=== PATIENT | male | born 1990 | race Caucasian/White ===

== ENCOUNTER 2016-08-10 18:42 | Emergency (ER) | payer OTHER ==
--- NOTE | 2016-08-10 18:56 | Emergency Department Record ---
History of Present Illness - General Chief Complaint: Chest Pain Stated Complaint: CHEST PAIN Time Seen by Provider: 08/10/16 18:54 Source: Patient Mode of Arrival: Ambulatory Limitations: No limitations - History of Present Illness Initial Comments: The patient is here due to waking up just over an hour ago and having Left upper chest pain. The pain is a mild aching pain that is better with lying down and worse with sitting up. He denies any SOB, MORA, sweating, or nausea with the pain. He also denies any recent illnesses, fever, chills, cough or congestion. The patient has no medical hx and no hx of any CP with exertion. MD Complaint: Chest pain Onset/Timin -: Hour(s) Onset: Awoke with symptoms Pain Location: Left chest Pain Radiation: LUE Severity: Mild Severity scale (1-10): 6 Quality: Aching Improves With: Nothing Worsens With: Nothing Treatments Prior to Arrival: None - Related Data Allergies Allergy/AdvReac Type Severity Reaction Status Date / Time No Known Drug Allergies Allergy Verified 08/10/16 18:54 Travel Screening - Travel/Exposure Within Last 30 Days Have you traveled within the last 30 days?: No - Travel/Exposure Within Last Year Have you traveled outside the [place] in the last year?: No - Additonal Travel Details Have you been exposed to anyone with a communicable illness?: No - Travel Symptoms Symptom Screening: None Review of Systems Constitutional: Denies: Chills, Fever Eyes: Denies: Eye discharge ENT: Denies: Congestion Respiratory: Denies: Cough, Dyspnea Past Medical History - SOCIAL HISTORY Smoking Status: Former smoker Alcohol Use: None Drug Use: None - RESPIRATORY Hx Respiratory Disorders: No - CARDIOVASCULAR Hx Cardio Disorders: No - NEURO Hx Neuro Disorders: No - GI Hx GI Disorders: No - Hx Genitourinary Disorders: No - ENDOCRINE Hx Endocrine Disorders: No - MUSCULOSKELETAL Hx Musculoskeletal Disorders: No - PSYCH Hx Psych Problems: No - HEMATOLOGY/ONCOLOGY Hx Hematology/Oncology Disorders: No Family Medical History Any Significant Family History?: No Physical Exam - General General Appearance: Alert, Oriented x3, Cooperative, No acute distress - Head Head exam: Atraumatic, Normocephalic, Normal inspection - Eye Eye exam: Normal appearance, PERRL - ENT Throat exam: Normal inspection. negative: Tonsillar erythema, Tonsillar exudate - Neck Neck exam: Normal inspection, Full ROM. negative: Tenderness - Respiratory Respiratory exam: Normal lung sounds bilaterally, Chest wall tenderness (To palpation over the L upper chest.). negative: Respiratory distress - Cardiovascular Cardiovascular Exam: Regular rate, Normal rhythm, Normal heart sounds - GI/Abdominal GI/Abdominal exam: Soft, Normal bowel sounds. negative: Tenderness - Extremities Extremities exam: Normal inspection, Full ROM, Normal capillary refill. negative: Tenderness Course Vital Signs 08/10/16 18:46 Temperature 97.6 F Pulse Rate 109 H Respiratory 16 Rate Blood Pressure 134/99 Pulse Ox 97 - Reevaluation(s) Reevaluation #1: The patient is doing well at this time. He denies any pain or MORA. I did discuss the xray results with him and the need for hospital admission at a larger hospital. Due to the fact he used to live in [place] he did pick [facility]. I then did discuss the patient with Dr. Christensen at the [facility] ER and she does accept the patient in an ER to ER transfer. 08/10/16 19:33 Reevaluation #2: The patient is doing well at this time. I did discuss the need for a small chest tube in the L side but the patient wants to wait until he gets to [facility]. Presently his vitals are WNL with no tachycardia or MORA. His RA biox is 98%. Because of the patient being so stable I do not see the need for the tube at this time and believe it will be safe for transfer to [facility]. The patient has been with the pain for about 2 hours now and is very stable. 08/10/16 19:45 Medical Decision Making - Data Complexity MDM Data: X-Ray Ordered and/or Reviewed - Lab Data Result diagrams: 08/10/16 19:25 08/10/16 19:25 - EKG Data -: EKG Interpreted by Me EKG: No Acute Changes, Normal EKG - Radiology Data Radiology results: Report reviewed (CXR: L sided PTX mild to mod.) Disposition Disposition: Transfer Clinical Impression: Pneumothorax on left Transfer To: [facility] Reason For Transfer: L sided PTX. Accepting Physician: Dr. Christensen Time Discussed w/Accepting Physician: 19:35 Forms: Patient Portal Access Time of Disposition: 19:35
[2016-08-10] MEDS: IBUPROFEN 600 MG TABLET PO ONE ×2 (19:15→19:17)
[2016-08-10] MEDS ORDERED: ONDANSETRON HCL IV 4 MG/2 ML VIAL IVP ONE (19:17)
[2016-08-10] MEDS ORDERED: HYDROMORPHONE HCL 1 MG/ML CPJ IVP ONE (19:17)
[2016-08-10 19:33] LABS: BASO % 0.9 % (0-6); EOS % 3.2 % (0-6); GRAN % 54.9 % (47-80); HEMATOCRIT 47.5 % (42.0-52.0); HEMOGLOBIN 16.5 gm/dl (14.0-18.0); LYMPH % 30.7 % (16-45); MEAN CELL VOLUME 83.8 fl (81-97); MEAN CORPUSCULAR HEMOGLOBIN 29.1 pg (27-33); MEAN CORPUSCULAR HGB CONC 34.7 g/dl (32-36); MEAN PLATELET VOLUME 10.3 fl (7.4-10.4); MONO % 10.3 % (0-9); PLATELET COUNT 176 K/uL (130-400); RED BLOOD COUNT 5.67 M/uL (4.40-5.70); RED CELL DISTRIBUTION WIDTH 13.6 % (11.5-14.5); WHITE BLOOD COUNT W/O DIFF 4.4 K/uL (4.2-12.2)
[2016-08-10 19:43] LABS: ANION GAP 7.7 (7-16); BLOOD UREA NITROGEN 16 mg/dL (9-20); CARBON DIOXIDE 29.3 mmol/L (22-30); CREATININE 0.9 mg/dL (0.66-1.25); EST GLOMERULAR FILTRATION RATE > 60 ml/min; GLUCOSE,RANDOM 93 mg/dL (70-110)
--- NOTE | 2016-08-13 15:15 | RADIOLOGY REPORT ---
EXAM: CHEST 2 VIEWS HISTORY: DIFFICULTY IN BREATHING. TECHNIQUE: Frontal and lateral views of the chest were performed. FINDINGS: Heart size normal. There is a left pneumothorax. There is pleural separation of 4.5 cm in the left lung apex. There is 1.6 cm laterally. The osseous structures are normal. JOB NUMBER: [id number] MTDD
== END 2016-08-10 19:52 | disposition short-term general hospital (02) ==
LOC: ER 18:42
DX: J93.9 Pneumothorax, unspecified (principal); Z87.891 Personal history of nicotine dependence
CPT/HCPCS: 99285 ×2; 96374; 96375; 85025; 80048; 71020; 93005; 93010; J2405; J1170

== ENCOUNTER 2016-08-17 11:38 | Emergency (ER) | payer OTHER ==
--- NOTE | 2016-08-17 12:10 | Emergency Department Record ---
History of Present Illness - General Chief Complaint: Shortness of breath Stated Complaint: MORA Time Seen by Provider: 08/17/16 12:01 Source: Patient Mode of Arrival: Wheelchair Limitations: No limitations - History of Present Illness Initial Comments: 26 yo male presents with initially a concern about the left sided chest dressing. He was concerns about bathing. Last week he had a pneumothorax. He was transferred to [facility]. He had a chest tube placed. He was discharged on Thursday. Today he was not sure if he could shower. He called [facility] and mentioned in the last one hour he felt anxious and short of breath. No fever or cough. MD Complaint: Shortness of breath Onset/Timin -: Hour(s) Severity: Mild Severity scale (1-10): 4 Quality: Aching Consistency: Constant Improves With: Nothing Worsens With: Movement Known History Of: Other Context: Trauma/injury Associated Symptoms: Other Treatments Prior to Arrival: Other (Left sided chest tube) - Related Data Home Medications Medication Instructions Recorded Confirmed Last Taken No Home Med [NO HOME MEDS] 08/17/16 08/17/16 Unknown Allergies Allergy/AdvReac Type Severity Reaction Status Date / Time No Known Drug Allergies Allergy Verified 08/10/16 18:54 Travel Screening - Travel/Exposure Within Last 30 Days Have you traveled within the last 30 days?: No Review of Systems Constitutional: Denies: Chills, Fever, Malaise Eyes: Denies: Eye discharge, Eye pain, Vision change ENT: Denies: Congestion, Throat pain Respiratory: Reports: Dyspnea. Denies: Cough, Hemoptysis, Stridor, Wheezes Cardiovascular: Denies: Chest pain, Palpitations, Syncope Endocrine: Denies: Fatigue Gastrointestinal: Denies: Diarrhea, Vomiting Genitourinary: Denies: Dysuria, Frequency Musculoskeletal: Denies: Arthralgia, Back pain, Myalgia Skin: Denies: Bruising, Change in color, Rash Neurological: Denies: Confusion, Headache Psychiatric: Denies: Anxiety Hematological/Lymphatic: Denies: Blood Clots, Easy bleeding, Easy bruising, Swollen glands Past Medical History - SOCIAL HISTORY Smoking Status: Former smoker - RESPIRATORY Hx Respiratory Disorders: Yes Comment:: spontaneous pneumo - CARDIOVASCULAR Hx Cardio Disorders: No - NEURO Hx Neuro Disorders: No - GI Hx GI Disorders: No - Hx Genitourinary Disorders: No - ENDOCRINE Hx Endocrine Disorders: No - MUSCULOSKELETAL Hx Musculoskeletal Disorders: No - PSYCH Hx Psych Problems: No - HEMATOLOGY/ONCOLOGY Hx Hematology/Oncology Disorders: No Family Medical History Any Significant Family History?: No Physical Exam - General General Appearance: Alert, Oriented x3, Cooperative, No acute distress Limitations: No limitations - Head Head exam: Normal inspection - Eye Eye exam: Normal appearance. negative: Conjunctival injection - ENT ENT exam: Normal exam Ear exam: Normal external inspection Nasal Exam: Normal inspection Mouth exam: Normal external inspection Teeth exam: Normal inspection Throat exam: Normal inspection - Neck Neck exam: Normal inspection, Full ROM. negative: Tenderness - Respiratory Respiratory exam: Normal lung sounds bilaterally. negative: Decreased breath sounds, Prolonged expiratory, Respiratory distress, Rhonchi, Stridor, Wheezes - Cardiovascular Cardiovascular Exam: Regular rate, Normal rhythm, Normal heart sounds - GI/Abdominal GI/Abdominal exam: Soft - Rectal Rectal exam: Deferred - exam: Deferred - Extremities Extremities exam: Normal inspection, Full ROM, Normal capillary refill. negative: Pedal edema, Tenderness - Back Back exam: Reports: Normal inspection. Denies: CVA tenderness (R), CVA tenderness (L) - Neurological Neurological exam: Alert, Oriented X3 - Psychiatric Psychiatric exam: Normal affect, Normal mood. negative: Agitated, Anxious - Skin Skin exam: Dry, Intact, Normal color, Warm Course Vital Signs 08/17/16 11:54 Temperature 98.7 F Pulse Rate 80 Respiratory 20 Rate Blood Pressure 151/87 Pulse Ox 98 - Reevaluation(s) Reevaluation #1: The patient was seen and examined He is calm an in no distress, he is non labored No hypoxia or tachycardia The dressing is intact, no redness or drainage near the chest tube insertion site. 08/17/16 12:09 Reevaluation #2: The CXR is negative. The prior PTX is resolved His vitals are unremarkable. No fever, tachycardia or hypoxia He is to call for follow up tomorrow as scheduled with his surgeon. 08/17/16 12:49 Disposition Disposition: Discharge Clinical Impression: Dyspnea Qualifiers: Dyspnea type: unspecified Qualified Code(s): R06.00 - Dyspnea, unspecified Disposition: Home, Self-Care Condition: (1) Good Instructions: Dyspnea (ED) Additional Instructions: Return or go to [facility] if you have pain, fever or shortness of breath Call for your appointment time for follow up in the morning Forms: Patient Portal Access Time of Disposition: 12:51
--- NOTE | 2016-08-21 07:24 | RADIOLOGY REPORT ---
EXAM: CHEST, TWO VIEWS HISTORY: DIFFICULTY IN BREATHING FOR ONE HOUR. SMOKE EXPOSURE. HISTORY OF PNEUMOTHORAX WITH CHEST TUBE PLACEMENT ONE WEEK AGO. TECHNIQUE: Upright PA and lateral views of the chest were obtained. Comparison: Two view chest radiographic examination dated 08/10/16. FINDINGS: There has been interval clearing of the left pneumothorax. The lungs and pleural spaces are clear. The cardiomediastinal silhouette is normal in size and configuration. The pulmonary vasculature is nondilated. No acute osseous abnormality noted. IMPRESSION: THE PREVIOUSLY DEMONSTRATED LEFT PNEUMOTHORAX IS NO LONGER VISUALIZED. NO EVIDENCE OF ACUTE CARDIOPULMONARY DISEASE. JOB NUMBER: [id number] [facility]
== END 2016-08-17 13:05 | disposition home or self-care (01) ==
LOC: ER 11:38
DX: R06.00 Dyspnea, unspecified (principal)
CPT/HCPCS: 71020; 99283

== ENCOUNTER 2017-02-04 07:56 | Emergency (ER) | payer OTHER ==
--- NOTE | 2017-02-04 08:22 | Emergency Department Record ---
History of Present Illness - General Chief complaint: Abscess Stated complaint: PRIVATE REASON Time Seen by Provider: 02/04/17 08:13 Mode of Arrival: Ambulatory - History of Present Illness Initial comments: lump on the right side of scrotum about one year and he said he had them as a kid and would pick at them and they would drainage. No pain today and no trauma. -: Year(s) Hx Tetanus Toxoid Vaccination: No Location: Genitals Consistency: Constant Improves with: None Worsens with: None Context: None Associated symptoms: Denies other symptoms Treatments Prior to Arrival: None - Related Data Allergies Allergy/AdvReac Type Severity Reaction Status Date / Time No Known Drug Allergies Allergy Verified 08/10/16 18:54 Travel Screening - Travel/Exposure Within Last 30 Days Have you traveled within the last 30 days?: No Review of Systems Reviewed: No additional complaints except as noted below Constitutional: Reports: As per HPI. Denies: Chills, Fever, Malaise, Night sweats, Weakness, Weight change Eyes: Reports: As per HPI. Denies: Eye discharge, Eye pain, Photophobia, Vision change ENT: Reports: As per HPI. Denies: Congestion, Dental pain, Ear pain, Epistaxis , Hearing loss, Throat pain Respiratory: Reports: As per HPI. Denies: Cough, Dyspnea, Hemoptysis, Stridor, Wheezes Cardiovascular: Reports: As per HPI. Denies: Arrhythmia, Chest pain, Dyspnea on exertion, Edema, Murmurs, Orthopnea, Palpitations, Paroxysmal nocturnal dyspnea, Rheumatic Fever, Syncope Endocrine: Reports: As per HPI. Denies: Fatigue, Heat or cold intolerance, Polydipsia, Polyuria Gastrointestinal: Reports: As per HPI. Denies: Abdominal pain, Constipation, Diarrhea, Hematemesis, Hematochezia, Melena, Nausea, Vomiting Genitourinary: Reports: As per HPI. Denies: Dysuria, Frequency, Hematuria, Incontinence, Retention, Testicular pain, Testicular mass, Urgency Musculoskeletal: Reports: As per HPI. Denies: Arthralgia, Back pain, Gout, Joint swelling, Myalgia, Neck pain Skin: Reports: As per HPI, Other (non painful cyst on the right side of the scrotum.). Denies: Bruising, Change in color, Change in hair/nails, Lesions, Pruritus, Rash Neurological: Reports: As per HPI. Denies: Abnormal gait, Confusion, Headache, Numbness, Paresthesias, Seizure, Tingling, Tremors, Vertigo, Weakness Psychiatric: Reports: As per HPI. Denies: Anxiety, Auditory hallucinations, Depression, Homicidal thoughts, Suicidal thoughts, Visual hallucinations Hematological/Lymphatic: Reports: As per HPI. Denies: Anemia, Blood Clots, Easy bleeding, Easy bruising, Swollen glands Past Medical History - SOCIAL HISTORY Smoking Status: Former smoker Alcohol Use: None Drug Use: None - RESPIRATORY Hx Respiratory Disorders: Yes Comment:: spontaneous pneumo - CARDIOVASCULAR Hx Cardio Disorders: No - NEURO Hx Neuro Disorders: No - GI Hx GI Disorders: No - Hx Genitourinary Disorders: No - ENDOCRINE Hx Endocrine Disorders: No - MUSCULOSKELETAL Hx Musculoskeletal Disorders: No - PSYCH Hx Psych Problems: No - HEMATOLOGY/ONCOLOGY Hx Hematology/Oncology Disorders: No Family Medical History Any Significant Family History?: No Physical Exam - General General Appearance: Alert, Oriented x3, Cooperative, No acute distress - Head Head exam: Normal inspection - Eye Eye exam: Normal appearance, PERRL Pupils: Normal accommodation - ENT ENT exam: Normal exam, Mucous membranes moist, Normal external ear exam, Normal orophraynx, TM's normal bilaterally Ear exam: Normal external inspection. negative: External canal tenderness Nasal Exam: Normal inspection. negative: Discharge, Sinus tenderness Mouth exam: Normal external inspection, Tongue normal Teeth exam: Normal inspection. negative: Dental caries Throat exam: Normal inspection. negative: Tonsillar erythema, Tonsillar exudate - Neck Neck exam: Normal inspection, Full ROM. negative: Tenderness - Respiratory Respiratory exam: Normal lung sounds bilaterally. negative: Respiratory distress - Cardiovascular Cardiovascular Exam: Regular rate, Normal rhythm, Normal heart sounds - GI/Abdominal GI/Abdominal exam: Soft, Normal bowel sounds. negative: Tenderness - Rectal Rectal exam: Deferred - exam: Scrotal swelling (white cystic lump, not painful and not infected), Other (white cyst on the side of the right scrotum. Not painful size of a small dickens tomato.) - Extremities Extremities exam: Normal inspection, Full ROM, Normal capillary refill. negative: Tenderness - Back Back exam: Reports: Normal inspection, Full ROM. Denies: Muscle spasm, Rash noted, Tenderness - Neurological Neurological exam: Alert, Normal gait, Oriented X3, Reflexes normal - Psychiatric Psychiatric exam: Normal affect, Normal mood - Skin Skin exam: Dry, Intact, Normal color, Warm Course Vital Signs 02/04/17 07:58 Temperature 97.5 F L Pulse Rate 105 H Respiratory 18 Rate Blood Pressure 136/90 Pulse Ox 99 Disposition Clinical Impression: Cyst of scrotum Disposition: Home, Self-Care Instructions: Epidermal Inclusion Cysts (ED) Additional Instructions: follow up with family to evaluate it. He would like to have it removed Forms: Patient Portal Access Time of Disposition: 08:33 Quality - Quality Measures Quality Measures: N/A - Blood Pressure Screening Does Patient Have Any of the Following: No Blood Pressure Classification: Hypertensive Reading Systolic Measurement: 136 Diastolic Measurement: 90 Screening for High Blood Pressure: < Pre-Hypertensive BP, F/U Documented > [ G8950] Pre-Hypertensive Follow-up Interventions: Referral to alternative/primary care provider.
== END 2017-02-04 08:39 | disposition home or self-care (01) ==
LOC: ER 07:56
DX: L72.8 Other follicular cysts of the skin and subcutaneous tissue (principal)
CPT/HCPCS: 99282

== ENCOUNTER 2018-08-30 09:44 | Emergency (ER) | payer SELFPAY ==
[2018-08-30] MEDS ORDERED: KETOROLAC 30 MG/ML VIAL IVP ONE (10:00)
[2018-08-30] MEDS ORDERED: LORAZEPAM 2 MG/ML VIAL IV ONE (10:02)
[2018-08-30 10:07] LABS: BASO % 0.4 % (0-6); EOS % 0.6 % (0-6); GRAN % 68.5 % (47-80); HEMATOCRIT 48.6 % (42.0-52.0); LYMPH % 20.4 % (16-45); MEAN CELL VOLUME 83.1 fl (81-97); MEAN PLATELET VOLUME 10.3 fl (7.4-10.4); MONO % 10.1 % (0-9); PLATELET COUNT 241 K/uL (130-400); RED BLOOD COUNT 5.85 M/uL (4.40-5.70); RED CELL DISTRIBUTION WIDTH 14.5 % (11.5-14.5)
--- NOTE | 2018-08-30 10:12 | Emergency Department Record ---
History of Present Illness - General Chief Complaint: Chest Pain Stated Complaint: CHEST PAIN Time Seen by Provider: 08/30/18 09:55 Source: Patient Mode of Arrival: Ambulatory Limitations: No limitations - History of Present Illness Initial Comments: The patient is here due to L sided sharp CP since yesterday. He denies any SOB with the pain or any sweating or nausea. The patient has a hx of similar pain with a spontaneous Pneumothorax on the L side in the past. MD Complaint: Chest pain Onset/Timin -: Days(s) Onset: During rest Pain Location: Left chest Pain Radiation: Back Severity: Moderate Severity scale (1-10): 8 Quality: Sharp Consistency: Constant Improves With: Nothing Worsens With: Movement Treatments Prior to Arrival: None - Related Data Home Medications Medication Instructions Recorded Confirmed Last Taken Nicotine [Nicotine 21Mg] 1 patch TD DAILY 08/30/18 08/30/18 08/30/18 Allergies Allergy/AdvReac Type Severity Reaction Status Date / Time No Known Drug Allergies Allergy Verified 08/30/18 09:49 Travel Screening - Travel/Exposure Within Last 30 Days Have you traveled within the last 30 days?: No - Travel/Exposure Within Last Year Have you traveled outside the [place] in the last year?: No Review of Systems Constitutional: Denies: Chills, Fever Eyes: Denies: Eye discharge ENT: Denies: Congestion Respiratory: Denies: Cough, Dyspnea Cardiovascular: Reports: Chest pain. Denies: Arrhythmia Endocrine: Denies: Fatigue Gastrointestinal: Denies: Nausea Musculoskeletal: Denies: Arthralgia Skin: Denies: Bruising Neurological: Denies: Abnormal gait Past Medical History - SOCIAL HISTORY Smoking Status: Former smoker Alcohol Use: None Drug Use: None - RESPIRATORY Hx Respiratory Disorders: Yes Comment:: spontaneous pneumo - CARDIOVASCULAR Hx Cardio Disorders: No - NEURO Hx Neuro Disorders: No - GI Hx GI Disorders: No - Hx Genitourinary Disorders: No - ENDOCRINE Hx Endocrine Disorders: No - MUSCULOSKELETAL Hx Musculoskeletal Disorders: No - PSYCH Hx Psych Problems: No - HEMATOLOGY/ONCOLOGY Hx Hematology/Oncology Disorders: No Family Medical History Any Significant Family History?: No Physical Exam - General General Appearance: Alert, Oriented x3, Cooperative, No acute distress - Head Head exam: Atraumatic, Normocephalic, Normal inspection - Eye Eye exam: Normal appearance, PERRL, EOMI - ENT Throat exam: Normal inspection. negative: Tonsillar erythema, Tonsillar exudate - Neck Neck exam: Normal inspection, Full ROM. negative: Tenderness - Respiratory Respiratory exam: Decreased breath sounds (L side.). negative: Normal lung sounds bilaterally, Respiratory distress - Cardiovascular Cardiovascular Exam: Regular rate, Normal rhythm, Normal heart sounds - GI/Abdominal GI/Abdominal exam: Soft, Normal bowel sounds. negative: Tenderness - Extremities Extremities exam: Normal inspection, Full ROM, Normal capillary refill. negative: Tenderness - Back Back exam: Reports: Normal inspection - Neurological Neurological exam: Alert, Normal gait. negative: Abnormal gait, Motor sensory deficit - Skin Skin exam: negative: Rash Course Vital Signs 08/30/18 09:46 Temperature 98.9 F Pulse Rate 108 H Respiratory 18 Rate Blood Pressure 127/95 Pulse Ox 98 - Reevaluation(s) Reevaluation #1: I did inform the patient of the L sided PTX. He states he would like to go to [facility] for the treatment. I did offer to place a chest tube but the patient would like to wait until he gets to [facility]. He would like to be out for the procedure which we cannot perform here. 08/30/18 10:34 Reevaluation #2: The patient is very stable at this time. His BP is stable and his HR is 100-110 with normal O2 sats. The patient has no signs of a tension PTX at this time. The patient would like to wait and possible have the surgery instead of the chest tube and also be out for the tube if he needs it. Due to those issues I do feel it is stable waiting to place the tube for now. 08/30/18 10:38 08/30/18 10:40 Medical Decision Making - Data Complexity MDM Data: EKG Ordered and/or Reviewed - Lab Data Result diagrams: 08/30/18 09:50 08/30/18 09:50 Lab Results 08/30/18 Range/Units 09:50 WBC 8.0 (4.2-12.2) K/uL RBC 5.85 H (4.40-5.70) M/uL Hgb 17.0 (14.0-18.0) gm/dl Hct 48.6 (42.0-52.0) % MCV 83.1 (81-97) fl MCH 29.0 (27-33) pg MCHC 35.0 (32-36) g/dl RDW 14.5 (11.5-14.5) % Plt Count 241 (130-400) K/uL MPV 10.3 (7.4-10.4) fl Gran % 68.5 (47-80) % Lymphocytes % 20.4 (16-45) % Monocytes % 10.1 H (0-9) % Eosinophils % 0.6 (0-6) % Basophils % 0.4 (0-6) % - EKG Data -: EKG Interpreted by Me EKG: No Acute Changes, Normal EKG, Unchanged From Previous Disposition Disposition: Transfer Clinical Impression: Pneumothorax on left Disposition: Acute Care Hospital Transfer Transfer To: [facility] Reason For Transfer: L sided PTX Accepting Physician: Nany. Time Discussed w/Accepting Physician: 10:36 Condition: (2) Stable Forms: Patient Portal Access Time of Disposition: 10:36 Quality - Quality Measures Quality Measures: N/A - Blood Pressure Screening View Details: Yes Does Patient Have Any of the Following: No Blood Pressure Classification: Hypertensive Reading Systolic Measurement: 127 Diastolic Measurement: 95 Screening for High Blood Pressure: < First Hypertensive BP, F/U Documented > [ G8950] First Hypertensive Follow-up Interventions: Referral to alternative/primary care provider.
[2018-08-30 10:20] LABS: BLOOD UREA NITROGEN 20 mg/dL (6-20); CREATININE 0.9 mg/dL (0.7-1.2); EST GLOMERULAR FILTRATION RATE > 60 mL/min
[2018-08-30 10:23] LABS: GLUCOSE,RANDOM 114 mg/dL (74-109)
[2018-08-30] MEDS ORDERED: HYDROMORPHONE HCL 2 MG/ML VIAL IVP ONE (10:38)
--- NOTE | 2018-08-31 18:46 | RADIOLOGY REPORT ---
EXAM: CHEST 2 VIEWS HISTORY: CHEST PAIN AND DIFFICULTY BREATHING FOR ONE DAY. HISTORY OF SPONTANEOUS PNEUMOTHORAX. TECHNIQUE: Two views of the chest. COMPARISON: Chest radiograph with rib series, 08/03/2018. FINDINGS: Cardiac silhouette within normal size limits. Mediastinal structures appear midline. There is a large left pneumothorax, pleural separation measuring up to 7.2 cm from the superior margin of the upper lobe to the apex. No focal right lung findings. IMPRESSION: 1. LARGE LEFT-SIDED PNEUMOTHORAX WITHOUT APPRECIABLE MEDIASTINAL MASS EFFECT AT THIS TIME. 2. ORDERING PROVIDER, DR. SIMPSON, WAS MADE AWARE OF THE FINDING AT THE TIME OF DICTATION. JOB NUMBER: [id number] MTDD
== END 2018-08-30 10:45 | disposition short-term general hospital (02) ==
LOC: ER 09:44
DX: J93.83 Other pneumothorax (principal); R06.02 Shortness of breath; Z87.891 Personal history of nicotine dependence
CPT/HCPCS: 71046; 80048; 85025; 93005; 93010; 96374; 96375; 99285; J1885

== ENCOUNTER 2018-09-26 08:44 | Emergency (ER) | payer SELFPAY ==
[2018-09-26] MEDS ORDERED: KETOROLAC 30 MG/ML VIAL IM ONE (09:04)
--- NOTE | 2018-09-26 09:11 | Emergency Department Record ---
History of Present Illness - General Chief Complaint: Chest Pain Stated Complaint: CHEST PAIN Time Seen by Provider: 09/26/18 08:48 Source: Patient Mode of Arrival: Ambulatory Limitations: No limitations - History of Present Illness Initial Comments: The patient is here due to L sided sharp CP for the last 2 hours. He has a hx of recurrent L sided PTX's and was last here almost 4 weeks ago with the same issue. He was transferred to [facility] and had a L sided Pleurodesis for recurrent PTX's just over 3 weeks ago. The patient spent a short time in the hospital after and has done well. This AM he was at work and he reached up with his L arm to twist a valve at work and developed sharp L upper chest pain along with sharp L upper back pain. The pain is worse with chest twisting and ROM of the L shoulder and the pain is similar to his previous PTX's but not exactly the same. He does feel anxious regarding the pain and is concerned he is having another PTX. MD Complaint: Chest pain Onset/Timin -: Hour(s) Onset: Other (While working. ) Pain Location: Left chest Pain Radiation: Back Severity: Moderate Severity scale (1-10): 7 Quality: Aching Consistency: Constant, Intermittent Improves With: Nothing Worsens With: Nothing Treatments Prior to Arrival: None - Related Data Home Medications Medication Instructions Recorded Confirmed Last Taken No Home Med [NO HOME MEDS] 09/26/18 09/26/18 Unknown Allergies Allergy/AdvReac Type Severity Reaction Status Date / Time No Known Drug Allergies Allergy Verified 09/26/18 08:55 Travel Screening - Travel/Exposure Within Last 30 Days Have you traveled within the last 30 days?: No - Travel/Exposure Within Last Year Have you traveled outside the [place] in the last year?: No - Additonal Travel Details Have you been exposed to anyone with a communicable illness?: No - Travel Symptoms Symptom Screening: None Review of Systems Constitutional: Denies: Chills, Fever Eyes: Denies: Eye discharge ENT: Denies: Congestion Respiratory: Denies: Cough, Dyspnea Cardiovascular: Reports: Chest pain Endocrine: Denies: Fatigue Gastrointestinal: Denies: Nausea Genitourinary: Denies: Dysuria Musculoskeletal: Denies: Arthralgia Skin: Denies: Bruising Past Medical History - SOCIAL HISTORY Smoking Status: Former smoker Alcohol Use: None Drug Use: None - RESPIRATORY Hx Respiratory Disorders: Yes Comment:: spontaneous pneumo X2 - CARDIOVASCULAR Hx Cardio Disorders: No - NEURO Hx Neuro Disorders: No - GI Hx GI Disorders: No - Hx Genitourinary Disorders: No - ENDOCRINE Hx Endocrine Disorders: No - MUSCULOSKELETAL Hx Musculoskeletal Disorders: No - PSYCH Hx Psych Problems: No - HEMATOLOGY/ONCOLOGY Hx Hematology/Oncology Disorders: No Family Medical History Any Significant Family History?: Yes Physical Exam - General General Appearance: Alert, Oriented x3, Cooperative, No acute distress - Head Head exam: Atraumatic, Normocephalic, Normal inspection - Eye Eye exam: Normal appearance - ENT Throat exam: Normal inspection. negative: Tonsillar erythema, Tonsillar exudate - Neck Neck exam: Normal inspection, Full ROM. negative: Tenderness - Respiratory Respiratory exam: Normal lung sounds bilaterally, Chest wall tenderness (THe L sided CP is 100% reproducible with palption to the L upper chest wall and with ROM of the L shoulder. The pain is also reproducible with palpation of the L upper back.). negative: Accessory muscle use, Decreased breath sounds, Respiratory distress, Rhonchi - Cardiovascular Cardiovascular Exam: Regular rate, Normal rhythm, Normal heart sounds. negative : Diastolic murmur, Systolic murmur - GI/Abdominal GI/Abdominal exam: Soft, Normal bowel sounds. negative: Tenderness - Extremities Extremities exam: Normal inspection, Full ROM, Normal capillary refill. negative: Tenderness - Back Back exam: Reports: Normal inspection, Paraspinal tenderness (The pain is reproducible with palpation of the L upper thoracic paraspinal area.) Image of Body Front/Back: 1 - Area of reproducible pain. 2 - Area of reproducible pain. - Neurological Neurological exam: Alert, Normal gait. negative: Abnormal gait, Motor sensory deficit Course Vital Signs 09/26/18 08:48 Temperature 97.6 F Pulse Rate 100 H Respiratory 20 Rate Blood Pressure 141/92 Pulse Ox 97 - Reevaluation(s) Reevaluation #1: The patient is doing a lot better at this time. His pain is almost completely gone at this time. He was sleeping on the stretcher when I entered the room. THe pain is still very reproducible with any palpation, chest twisting or raising the L arm. I did explain to him that we did not find any new PTX and he is to take his home medicines for pain. He is to return to the ER for any worsening symptoms. 09/26/18 10:44 Medical Decision Making - Data Complexity MDM Data: X-Ray Ordered and/or Reviewed - EKG Data -: EKG Interpreted by Me EKG: No Acute Changes (Normal EKG. Early Repolarization pattern.) - Radiology Data Radiology results: Report reviewed (CXR: post op changes, neg for acute PTX.) Disposition Disposition: Discharge Clinical Impression: Chest wall pain Disposition: Home, Self-Care Condition: (2) Stable Instructions: Chest Wall Pain (ED) Additional Instructions: Please take your home pain medicines as needed and rest with no lifting today. Please see your family doctor for recheck in 2-3 days. Return to the ER for any worsening symptoms. Forms: Patient Portal Access Time of Disposition: 10:47 Quality - Quality Measures Quality Measures: N/A - Blood Pressure Screening View Details: Yes Does Patient Have Any of the Following: No Blood Pressure Classification: Pre-Hypertensive BP Reading Systolic Measurement: 112 Diastolic Measurement: 82 Screening for High Blood Pressure: < Pre-Hypertensive BP, F/U Documented > [ G8950] Pre-Hypertensive Follow-up Interventions: Referral to alternative/primary care provider.
[2018-09-26] MEDS ORDERED: ACETAMINOPHEN 325 MG TAB PO ONE (10:27)
--- NOTE | 2018-09-29 09:59 | RADIOLOGY REPORT ---
EXAM: CHEST, TWO VIEWS HISTORY: LEFT SIDED CHEST PAIN AND COUGH SINCE THIS MORNING. LEFT LUNG SURGERY TWO WEEKS AGO. TECHNIQUE: PA and lateral upright views of the chest were obtained. Comparison: 08/30/18. FINDINGS: Lung sutures are noted along the medial aspect of the left apex. There is no evidence for recurrent pneumothorax. There are no acute infiltrates or effusions. The heart, mediastinum, and pulmonary vasculature are normal. IMPRESSION: 1. POST SURGICAL CHANGES AT THE MEDIAL ASPECT OF THE LEFT APEX. 2. NO ACUTE INTRATHORACIC PATHOLOGY. JOB NUMBER: [id number] MTDD
--- NOTE | 2018-09-29 12:19 | CT SCAN REPORT ---
EXAM: CT SCAN OF THE CHEST WITHOUT CONTRAST HISTORY: LEFT UPPER CHEST PAIN. RECENT SURGERY FOR SPONTANEOUS PNEUMOTHORAX. TECHNIQUE: Standard CT imaging of the chest was performed in the axial plane without contrast. Comparison: Chest x-rays dated 09/26/18 and 08/30/18. FINDINGS: There are post surgical changes within the anteromedial aspect of the left upper lobe. A line of lung sutures is present. There is mild adjacent atelectasis/scarring. There is no evidence for recurrent pneumothorax. There is no pleural effusion. The lungs are otherwise clear. The heart and great vessels are normal. There is no mediastinal or hilar lymphadenopathy. The chest wall and axillary regions are normal. There are no acute osseous abnormalities. The visualized portions of the upper abdomen are unremarkable. IMPRESSION: 1. POST SURGICAL CHANGES WITHIN THE ANTEROMEDIAL ASPECT OF THE LEFT UPPER LOBE. THERE IS NO EVIDENCE FOR RECURRENT PNEUMOTHORAX. 2. NO ACUTE INTRATHORACIC PATHOLOGY. JOB NUMBER: [id number] MTDD
== END 2018-09-26 10:56 | disposition home or self-care (01) ==
LOC: ER 08:44
DX: R07.89 Other chest pain (principal); Z87.891 Personal history of nicotine dependence
CPT/HCPCS: 99284 ×2; 96372; 71046; 71250; 93005; 93010; J1885

== ENCOUNTER 2019-02-23 06:21 | Emergency (ER) | payer OTHER ==
--- NOTE | 2019-02-23 06:45 | Emergency Department Record ---
History of Present Illness - General Chief Complaint: Headache Migraine Stated Complaint: HEADACHE Time Seen by Provider: 02/23/19 06:22 Source: Patient Mode of Arrival: Ambulatory Limitations: No limitations - History of Present Illness Initial Comments: 29 yo male presents with a headache. The headache initially started on in the shower after work. The pain was sudden and sharp. He points to the left posterior occipital area. The pain was constant. He was seen in the [facility] on February 21. He was treated with Reglan and Toradol. He had relief that day but the headache was present when he woke up the next day and remains co nstant. No fever, trauma, weakness, numbness, tingling, dizziness, nausea, vomiting. The area is not tender to touch. No neck pain or pain with neck movement. He states this is a rare thing for him to have headaches. No light sensitivity. MD Complaint: Headache Onset/Timin -: Week(s) Onset Description: Sudden Location: Neck, Occipital Severity: Moderate Severity scale (1-10): 7 Quality: Worst headache of life Consistency: Constant Improves With: Medication Worsens With: None, Other (Nothing) Context: Other Associated Symptoms: Other Treatments Prior to Arrival: None - Related Data Previous Rx's Medication Instructions Recorded Naproxen [Naprosyn] 500 mg PO Q12H #20 tab 02/23/19 Allergies Allergy/AdvReac Type Severity Reaction Status Date / Time No Known Drug Allergies Allergy Verified 02/23/19 06:32 Travel Screening - Travel/Exposure Within Last 30 Days Have you traveled within the last 30 days?: No - Travel/Exposure Within Last Year Have you traveled outside the [place] in the last year?: No - Additonal Travel Details Have you been exposed to anyone with a communicable illness?: No - Travel Symptoms Symptom Screening: None Review of Systems Constitutional: Denies: Chills, Fever, Malaise, Weakness Eyes: Denies: Eye discharge, Eye pain, Photophobia, Vision change ENT: Reports: Ear pain (radiates to the left ear ). Denies: Congestion, Dental pain, Epistaxis, Throat pain Respiratory: Denies: Cough, Dyspnea, Hemoptysis, Stridor, Wheezes Cardiovascular: Denies: Chest pain, Palpitations, Syncope Gastrointestinal: Denies: Abdominal pain, Diarrhea, Nausea, Vomiting Genitourinary: Denies: Dysuria, Frequency, Hematuria Musculoskeletal: Denies: Arthralgia, Back pain, Joint swelling, Myalgia Skin: Denies: Bruising, Change in color, Rash Neurological: Reports: Headache. Denies: Numbness, Weakness Psychiatric: Denies: Anxiety Hematological/Lymphatic: Denies: Easy bleeding, Easy bruising Past Medical History - SOCIAL HISTORY Smoking Status: Former smoker Alcohol Use: None Drug Use: Heavy Drug Use Detail:: Marijuana - RESPIRATORY Hx Respiratory Disorders: Yes Comment:: spontaneous pneumo X2 - CARDIOVASCULAR Hx Cardio Disorders: No - NEURO Hx Neuro Disorders: No - GI Hx GI Disorders: No - Hx Genitourinary Disorders: No - ENDOCRINE Hx Endocrine Disorders: No - MUSCULOSKELETAL Hx Musculoskeletal Disorders: No - PSYCH Hx Psych Problems: Yes Hx Anxiety: Yes - HEMATOLOGY/ONCOLOGY Hx Hematology/Oncology Disorders: No Family Medical History Any Significant Family History?: No Physical Exam - General General Appearance: Alert, Oriented x3, Cooperative, No acute distress, Other (A ppears comfortable) Limitations: No limitations - Head Head exam: Atraumatic, Normocephalic, Normal inspection - Eye Eye exam: Normal appearance, PERRL, EOMI. negative: Conjunctival injection, Nys tagmus, Periorbital swelling, Periorbital tenderness Pupils: Normal accommodation. negative: Irregular, Miosis, Mydriatic, Unequal - ENT ENT exam: Normal exam, Mucous membranes moist, Normal orophraynx, TM's normal bilaterally Ear exam: Normal external inspection Nasal Exam: Normal inspection Mouth exam: Normal external inspection - Neck Neck exam: Normal inspection, Full ROM, Other (no pain with ROM). negative: Lymphadenopathy, Meningismus, Tenderness - Respiratory Respiratory exam: Normal lung sounds bilaterally. negative: Respiratory distress - Cardiovascular Cardiovascular Exam: Regular rate, Normal rhythm, Normal heart sounds Peripheral Pulses: 0: Radial (R), Radial (L), Dorsalis Pedis (R), Dorsalis Pedis (L) - GI/Abdominal GI/Abdominal exam: Soft. negative: Tenderness - Rectal Rectal exam: Deferred - exam: Deferred - Extremities Extremities exam: Normal inspection. negative: Pedal edema, Tenderness - Back Back exam: Denies: CVA tenderness (R), CVA tenderness (L) - Neurological Neurological exam: Alert, CN II-XII intact, Normal gait, Oriented X3, Reflexes normal. negative: Abnormal gait, Altered, Motor sensory deficit - Psychiatric Psychiatric exam: Normal affect, Normal mood - Skin Skin exam: Dry, Intact, Normal color, Warm Course Vital Signs 02/23/19 06:30 Temperature 97.7 F Pulse Rate [ 84 Pulse Ox Probe] Respiratory 20 Rate Blood Pressure 139/93 [Left Arm] Pulse Ox 98 - Reevaluation(s) Reevaluation #1: Given the sudden onset of the headache and that headaches are unusual for him I recommend labs and CT scan at this time. 02/23/19 06:45 The patient was turned over to Dr Head at shift change. See his chart for further documentation, results and disposition. 02/23/19 07:00 Medical Decision Making - Lab Data Result diagrams: 02/23/19 06:50 02/23/19 06:50 Disposition Disposition: Discharge Clinical Impression: Tension headache Disposition: Home, Self-Care Condition: (1) Good Instructions: Tension Headache (ED) Additional Instructions: follow up with family Dr in 5 days use naprosyn twice a day Prescriptions: Naproxen [Naprosyn] 500 mg PO Q12H #20 tab.dr Forms: Patient Portal Access Time of Disposition: 10:00 Quality - Quality Measures Quality Measures: N/A, Headache (All Ages) - Headache: Neuroimaging Quality Measure: Measure #419: Overuse of Neuroimaging ICD10 Codes Entered: Yes Neurological Exam: Patient had a normal neurological exam. [G9535] Headache: Use of Neuroimaging: CTA, CT, MRA or MRI Ordered w/Medical Reason [G9536] Medical Reason for Exam: Change in Type of Headache - Blood Pressure Screening Does Patient Have Any of the Following: No Blood Pressure Classification: Hypertensive Reading Systolic Measurement: 132 Diastolic Measurement: 93 Screening for High Blood Pressure: < Pre-Hypertensive BP, F/U Documented > [G8950] Pre-Hypertensive Follow-up Interventions: Referral to alternative/primary care provider.
[2019-02-23] MEDS ORDERED: METOCLOPRAMIDE HCL 10 MG/2 ML VIAL IVP ONE (06:46)
[2019-02-23] MEDS ORDERED: ACETAMINOPHEN 1,000 MG/100 ML BTL IVPB ONE (06:47)
[2019-02-23 06:56] LABS: ABSOLUTE NEUTROPHIL COUNT 2.35; BASO % 0.5 % (0-6); EOS % 2.8 % (0-6); GRAN % 54.2 % (47-80); HEMATOCRIT 45.8 % (42.0-52.0); HEMOGLOBIN 15.7 gm/dl (14.0-18.0); LYMPH % 29.1 % (16-45); MEAN CELL VOLUME 82.8 fl (81-97); MEAN CORPUSCULAR HEMOGLOBIN 28.4 pg (27-33); MEAN CORPUSCULAR HGB CONC 34.3 g/dl (32-36); MEAN PLATELET VOLUME 10.9 fl (7.4-10.4); MONO % 13.4 % (0-9); PLATELET COUNT 209 K/uL (130-400); RED BLOOD COUNT 5.53 M/uL (4.40-5.70); RED CELL DISTRIBUTION WIDTH 13.8 % (11.5-14.5); WHITE BLOOD COUNT W/O DIFF 4.3 K/uL (4.2-12.2)
[2019-02-23 07:04] LABS: BLOOD UREA NITROGEN 14 mg/dL (6-20); CREATININE 0.8 mg/dL (0.7-1.2); EST GLOMERULAR FILTRATION RATE > 60 mL/min
[2019-02-23 07:07] LABS: GLUCOSE,RANDOM 105 mg/dL (74-109)
--- NOTE | 2019-02-23 07:55 | Emergency Department Record ---
History of Present Illness - General Chief Complaint: Headache Migraine Stated Complaint: HEADACHE Time Seen by Provider: 02/23/19 06:22 Source: Patient, RN notes reviewed Mode of Arrival: Ambulatory Limitations: No limitations - History of Present Illness Initial Comments: headace and took over from Dr Flores at 7am and he said his headache is better. neuro exam negative Onset/Timin -: Week(s) Onset Description: Sudden Location: Neck, Occipital Severity: Moderate Severity scale (1-10): 7 Quality: Worst headache of life Consistency: Constant Improves With: Medication Worsens With: None, Other (Nothing) Context: Other Associated Symptoms: Other Treatments Prior to Arrival: None - Related Data Previous Rx's Medication Instructions Recorded Naproxen [Naprosyn] 500 mg PO Q12H #20 tab. 02/23/19 Allergies Allergy/AdvReac Type Severity Reaction Status Date / Time No Known Drug Allergies Allergy Verified 02/23/19 06:32 Travel Screening - Travel/Exposure Within Last 30 Days Have you traveled within the last 30 days?: No - Travel/Exposure Within Last Year Have you traveled outside the [place] in the last year?: No - Additonal Travel Details Have you been exposed to anyone with a communicable illness?: No - Travel Symptoms Symptom Screening: None Review of Systems Constitutional: Denies: Chills, Fever, Malaise, Weakness Eyes: Denies: Eye discharge, Eye pain, Photophobia, Vision change ENT: Reports: Ear pain (radiates to the left ear ). Denies: Congestion, Dental pain, Epistaxis, Throat pain Respiratory: Denies: Cough, Dyspnea, Hemoptysis, Stridor, Wheezes Cardiovascular: Denies: Chest pain, Palpitations, Syncope Gastrointestinal: Denies: Abdominal pain, Diarrhea, Nausea, Vomiting Genitourinary: Denies: Dysuria, Frequency, Hematuria Musculoskeletal: Denies: Arthralgia, Back pain, Joint swelling, Myalgia Skin: Denies: Bruising, Change in color, Rash Neurological: Reports: Headache. Denies: Numbness, Weakness Psychiatric: Denies: Anxiety Hematological/Lymphatic: Denies: Easy bleeding, Easy bruising Past Medical History - SOCIAL HISTORY Smoking Status: Former smoker Alcohol Use: None Drug Use: Heavy Drug Use Detail:: Marijuana - RESPIRATORY Hx Respiratory Disorders: Yes Comment:: spontaneous pneumo X2 - CARDIOVASCULAR Hx Cardio Disorders: No - NEURO Hx Neuro Disorders: No - GI Hx GI Disorders: No - Hx Genitourinary Disorders: No - ENDOCRINE Hx Endocrine Disorders: No - MUSCULOSKELETAL Hx Musculoskeletal Disorders: No - PSYCH Hx Psych Problems: Yes Hx Anxiety: Yes - HEMATOLOGY/ONCOLOGY Hx Hematology/Oncology Disorders: No Family Medical History Any Significant Family History?: No Physical Exam - General General Appearance: Alert, Oriented x3, Cooperative, No acute distress Limitations: No limitations - Head Head exam: Normal inspection, Other (pain on the left occipital protrubance) - Eye Eye exam: Normal appearance, PERRL Pupils: Normal accommodation - ENT ENT exam: Normal exam, Mucous membranes moist, Normal external ear exam, Normal orophraynx, TM's normal bilaterally Ear exam: Normal external inspection. negative: External canal tenderness Nasal Exam: Normal inspection. negative: Discharge, Sinus tenderness Mouth exam: Normal external inspection, Tongue normal Teeth exam: Normal inspection. negative: Dental caries Throat exam: Normal inspection. negative: Tonsillar erythema, Tonsillar exudate - Neck Neck exam: Normal inspection, Full ROM. negative: Tenderness - Respiratory Respiratory exam: Normal lung sounds bilaterally. negative: Respiratory distress - Cardiovascular Cardiovascular Exam: Regular rate, Normal rhythm, Normal heart sounds - GI/Abdominal GI/Abdominal exam: Soft, Normal bowel sounds. negative: Tenderness - Rectal Rectal exam: Deferred - exam: Deferred - Extremities Extremities exam: Normal inspection, Full ROM, Normal capillary refill. neg ative: Tenderness - Back Back exam: Reports: Normal inspection, Full ROM. Denies: Muscle spasm, Rash noted, Tenderness - Neurological Neurological exam: Alert, Normal gait, Oriented X3, Reflexes normal - Psychiatric Psychiatric exam: Normal affect, Normal mood - Skin Skin exam: Dry, Intact, Normal color, Warm Course Vital Signs 02/23/19 02/23/19 06:30 07:07 Temperature 97.7 F Pulse Rate [ 84 87 Pulse Ox Probe] Respiratory 20 16 Rate Blood Pressure 139/93 134/106 [Left Arm] Pulse Ox 98 97 - Reevaluation(s) Reevaluation #1: took over fron Dr Flores at 7am and CT of head pending 02/23/19 07:50 Reevaluation #2: patient is feeling better and tylenol and reglan helped his headache and he said he has used ibuprofen at home. 02/23/19 07:54 Medical Decision Making - Data Complexity [place] Data: X-Ray Ordered and/or Reviewed (ct head negative) - Lab Data Result diagrams: 02/23/19 06:50 02/23/19 06:50 Lab Results 02/23/19 02/23/19 Range/Units 06:50 06:50 WBC 4.3 (4.2-12.2) K/uL RBC 5.53 (4.40-5.70) M/uL Hgb 15.7 (14.0-18.0) gm/dl Hct 45.8 (42.0-52.0) % MCV 82.8 (81-97) fl MCH 28.4 (27-33) pg MCHC 34.3 (32-36) g/dl RDW 13.8 (11.5-14.5) % Plt Count 209 (130-400) K/uL MPV 10.9 H (7.4-10.4) fl Gran % 54.2 (47-80) % Lymphocytes % 29.1 (16-45) % Monocytes % 13.4 H (0-9) % Eosinophils % 2.8 (0-6) % Basophils % 0.5 (0-6) % Absolute Neutrophils 2.35 Sodium 145 (136-145) mmol/L Potassium 4.5 (3.4-4.5) mmol/L Chloride 107 (98-107) mmol/L Carbon Dioxide 27.0 (22-29) mmol/L Anion Gap 11.0 (7-16) BUN 14 (6-20) mg/dL Creatinine 0.8 (0.7-1.2) mg/dL Estimated GFR > 60 mL/min Random Glucose 105 (74-109) mg/dL Calcium 9.3 (8.6-10.0) mg/dL Disposition Clinical Impression: Tension headache Disposition: Home, Self-Care Condition: (1) Good Instructions: Tension Headache (ED) Additional Instructions: follow up with family Dr in 5 days use naprosyn twice a day Prescriptions: Naproxen [Naprosyn] 500 mg PO Q12H #20 tab.dr Forms: Patient Portal Access Time of Disposition: 07:59 Quality - Quality Measures Quality Measures: N/A, Headache (All Ages) - Headache: Neuroimaging Quality Measure: Measure #419: Overuse of Neuroimaging ICD10 Codes Entered: Yes Neurological Exam: Patient had a normal neurological exam. [G9535] Headache: Use of Neuroimaging: CTA, CT, MRA or MRI Ordered w/Medical Reason [G9536] Medical Reason for Exam: Change in Type of Headache, Very Young w/Unexplained Headache Symptoms - Blood Pressure Screening Does Patient Have Any of the Following: No Blood Pressure Classification: Hypertensive Reading Systolic Measurement: 134 Diastolic Measurement: 106 Screening for High Blood Pressure: < Pre-Hypertensive BP, F/U Documented > [G8950] Pre-Hypertensive Follow-up Interventions: Referral to alternative/primary care provider.
--- NOTE | 2019-02-25 09:11 | CT SCAN REPORT ---
EXAM: CT SCAN OF THE HEAD HISTORY: PATIENT HAS THROBBING OCCIPITAL HEADACHE. TECHNIQUE: Serial axial CT scan of the head was performed at 2.5 mm intervals from the base of the skull to the apex without the use of intravenous contrast. Comparison: No comparison CT's are available. FINDINGS: The ventricles, cisterns, and sulci appear within normal limits for size, shape and attenuation. There is no mass or mass effect. The whitney and white differentiation appear within normal limits. There is no CT evidence of intra or extraaxial fluid collection to suggest bleeding. The bone windows demonstrate no CT evidence of a fracture or dislocation of the skull. The bone windows of the paranasal sinuses demonstrate mild mucus retention cyst within the left maxillary sinus. Mild mucosal thickening is noted within the bilateral ethmoid sinuses. IMPRESSION: 1. NO CT EVIDENCE OF AN ACUTE INTRACRANIAL PROCESS. 2. MILD MUCOSAL THICKENING IS NOTED WITHIN THE PARANASAL SINUSES. CLINICAL CORRELATION FOR CHRONIC SINUSITIS IS RECOMMENDED. JOB NUMBER: [id number] MTDD
== END 2019-02-23 09:53 | disposition home or self-care (01) ==
LOC: ER 06:21
DX: G44.209 Tension-type headache, unspecified, not intractable (principal)
CPT/HCPCS: 70450; 80048; 85025; 96374; 96375; 99284; J2765